=== PATIENT | male | born 1990 | race Two or more races ===

== ENCOUNTER 2016-10-07 14:12 | Emergency (ER) | payer MEDICARE, MEDICAID ==
[2016-10-07] MEDS ORDERED: HYDROmorphone 1 MG/ML Syringe IVPUSH ONE ×3 (16:36→20:14)
[2016-10-07] MEDS ORDERED: Ondansetron 4 MG/2 ML SDV IVPUSH ONE ×2 (16:36→20:15)
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
[2016-10-07] MEDS ORDERED: Sodium Chloride 0.9% 1,000 ML IV SCH ×2 (16:45→19:00)
[2016-10-07 17:07] VITALS: BP 132/75
[2016-10-07] MEDS ORDERED: Sodium Chloride 0.9% 10 ML Syringe FLUSH PRN (17:19)
[2016-10-07] MEDS ORDERED: Iopamidol 612 MG/ML 150 ML Bottle IV SCH (17:30)
[2016-10-07] MEDS ORDERED: Lactated Ringers 1,000 ML IV SCH (20:30)
== END 2016-10-07 21:00 ==
LOC: JP.ED 14:12
DX: K85.90 Acute pancreatitis without necrosis or infection, unspecified (principal); Z90.49 Acquired absence of other specified parts of digestive tract; Z87.442 Personal history of urinary calculi; Z98.890 Other specified postprocedural states
CPT/HCPCS: 36415; 74177; 80053; 81001; 82150; 83690; 85025; 86140; 96361; 96374; 96375; 96376; 99285; J1170; J2405; J7030; J7040; J7050; J7120

== ENCOUNTER 2016-10-09 16:34 | Observation (INO) | payer MEDICARE, MEDICAID ==
[2016-10-09] MEDS ORDERED: Sodium Chloride 0.9% 1,000 ML IV SCH (18:15)
[2016-10-09] MEDS ORDERED: Ondansetron 4 MG/2 ML SDV IVPUSH ONE (18:16)
[2016-10-09] MEDS ORDERED: HYDROmorphone 1 MG/ML Syringe IVPUSH ONE ×2 (18:16→19:46)
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
[2016-10-09] MEDS ORDERED: oxyCODONE 5 MG Tab PO PRN (20:09)
[2016-10-09] MEDS ORDERED: Albuterol 0.083% 2.5 MG/3 ML Neb Soln NEB PRN (20:09)
[2016-10-09] MEDS ORDERED: Docusate Sodium 100 MG Cap PO PRN (20:09)
[2016-10-09] MEDS ORDERED: Bisacodyl 5 MG Tab PO PRN (20:09)
[2016-10-09] MEDS ORDERED: Acetaminophen 325 MG Tab PO PRN (20:09)
[2016-10-09] MEDS ORDERED: LORazepam 2 MG/ML MDV IV PRN (20:09)
[2016-10-09] MEDS ORDERED: Ondansetron 4 MG Tab.DIS PO PRN (20:09)
[2016-10-09] MEDS ORDERED: Naloxone 0.4 MG/ML SDV IVPUSH PRN (20:09)
[2016-10-09] MEDS ORDERED: HYDROmorphone/Normal Saline 15 MG/30 ML PCA IV PRN (20:09)
[2016-10-09] MEDS: Sodium Chloride 0.9% 1,000 ML IV SCH ×2 (20:44→22:09)
[2016-10-09] MEDS ORDERED: Zolpidem 5 MG Tab PO SCH (21:00)
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
[2016-10-10] MEDS: Sodium Chloride 0.9% 1,000 ML IV SCH (03:46)
[2016-10-10] MEDS ORDERED: Pantoprazole 40 MG Tab.CR PO SCH (07:30)
[2016-10-10 10:38] VITALS: BP 132/95
--- NOTE | 2016-10-10 10:58 | PCM.DCSUM1 ---
Discharge Summary - Hospital Course Brief History: This patient is a 25-year-old gentleman who was admitted through the emergency department for observation status for management of residual abdominal pain following a recent ERCP for common duct stones. - Discharge Data Discharge Date: 10/10/16 Discharge Disposition: Home, Self-Care 01 Condition: Good - Discharge Diagnosis/Problem(s) (1) Pancreatitis due to common bile duct stone SNOMED Code(s): 82119384 ICD Code: K85.90 - ACUTE PANCREATITIS WITHOUT NECROSIS OR INFECTION, UNSP; K80.50 - CALCULUS OF BILE DUCT W/O CHOLANGITIS OR CHOLECYST W/O OBST Status: Acute Current Visit: Yes (2) Chronic abdominal pain SNOMED Code(s): 945167818 ICD Code: R10.9 - UNSPECIFIED ABDOMINAL PAIN; G89.29 - OTHER CHRONIC PAIN Status: Chronic Current Visit: No - Patient Summary/Data Consults: Consultations 10/09/16 20:09 Consult to Case Management [CONS] Routine Comment: Physician Instructions: Quantity: 10/10/16 09:00 Consult to Spiritual Care [CONS] Routine Spiritual Care Specialty: Electrical Control Assembler Special Instructions: Pt requests more information regarding advanced directives. Hospital Course: This patient is a 25-year-old gentleman, earlier this week presented with abdominal pain and elevated liver enzymes as well as pancreatitis. He was transferred to tertiary care Center in [place], was found to have common duct stones and underwent a ERCP. He left the hospital in [place] early yesterday and presented to our emergency room still experiencing some abdominal pain. Labs were unremarkable including normal bilirubin and alkaline phosphatase as well as lipase level. White blood cell count was normal and he was afebrile with stable vital signs. He was admitted to observation status for pain management. He received IV pain medications via GENERAL FOUNDRY WORKER pump as well as IV fluids for hydration. By the following morning he was tolerating a regular diet and labs remained stable. Abdominal pain had essentially resolved compared to what he was experiencing on admission. He will be discharged to home, followup appointment should be scheduled with primary care provider within one week. Activity will be as tolerated and he will resume his usual diet. - Patient Instructions Diet: Usual Diet as Tolerated Activity: As Tolerated Other/Special Instructions: Schedule followup appointment with primary care provider within one week. Followup with gastroenterology as previously scheduled. - Discharge Plan Home Medications: Home Meds NK [No Known Home Meds] 08/30/16 [History] Referrals: PCP,None [Primary Care Provider] - - Patient Data Vitals - Most Recent: Last Vital Signs Temp 97.6 F 10/10/16 10:37 Pulse 72 10/10/16 10:37 Resp 18 10/10/16 10:37 BP 132/95 H 10/10/16 10:37 Pulse Ox 96 10/10/16 10:37 Weight - Most Recent: 255 lb I&O - Last 24 hours: Intake & Output 10/09/16 10/10/16 10/10/16 22:59 06:59 14:59 Intake Total 480 1752 Balance 480 1752 Lab Results - Last 24 hrs: Laboratory Results - last 24 hr 10/10/16 10/10/16 10/10/16 Range/Units 04:50 04:50 04:50 WBC 7.3 (4.5-11.0) K/uL RBC 4.80 (4.30-5.90) M/uL Hgb 14.1 (12.0-15.0) g/dL Hct 41.6 (40.0-54.0) % MCV 87 (80-98) fL MCH 29 (27-31) pg MCHC 34 (32-36) % Plt Count 193 (150-400) K/uL Neut % (Auto) 41 (36-66) % Lymph % (Auto) 42 (24-44) % Mccormick % (Auto) 11 H (2-6) % Eos % (Auto) 6 H (2-4) % Baso % (Auto) 1 (0-1) % Sodium 142 (140-148) mmol/L Potassium 4.4 (3.6-5.2) mmol/L Chloride 105 (100-108) mmol/L Carbon Dioxide 28 (21-32) mmol/L Anion Gap 9.4 (5.0-14.0) mmol/L BUN 10 (7-18) mg/dL Creatinine 1.0 (0.8-1.3) mg/dL Est Cr Clr Drug Dosing 122.87 mL/min Estimated GFR (MDRD) > 60 (>60) Glucose 123 H (74-106) mg/dL Calcium 8.3 L (8.5-10.1) mg/dL Amylase 77 (25-115) U/L Lipase 332 (73-393) U/L Med Orders - Current: Current Medications Acetaminophen (Tylenol) 650 mg PO Q4H PRN PRN Reason: Pain (Mild 1-3)/fever Albuterol (Proventil Neb Soln) 2.5 mg NEB Q4H PRN PRN Reason: Shortness Of Breath/wheezing Bisacodyl (Dulcolax) 5 mg PO DAILY PRN PRN Reason: Constipation Docusate Sodium (Colace) 100 mg PO BID PRN PRN Reason: Constipation Hydromorphone HCl (Dilaudid Train Controller 15 Mg In Ns 30 Ml) 0 mg IV ASDIRECTED PRN; Protocol PRN Reason: Pain Last Admin: 10/09/16 20:11 Dose: 15 mg Sodium Chloride (Normal Saline) 1,000 mls @ 125 mls/hr IV ASDIRECTED [facility] Last Admin: 10/10/16 03:46 Dose: 125 mls/hr Lorazepam (Ativan) 1 mg IV Q6H PRN PRN Reason: Nausea/Vomiting Naloxone HCl (Narcan) 0.4 mg IVPUSH Q2M PRN PRN Reason: Respiratory Distress Ondansetron HCl (Zofran Odt) 4 mg PO Q6H PRN PRN Reason: Nausea able to take PO Last Admin: 10/09/16 21:29 Dose: 4 mg Oxycodone HCl (Oxycodone) 5 mg PO Q4H PRN PRN Reason: Pain (moderate 4-6) Pantoprazole Sodium (Protonix) 40 mg PO ACBREAKFAST [facility] Last Admin: 10/10/16 09:36 Dose: 40 mg Zolpidem Tartrate (Ambien) 5 mg PO BEDTIME [facility] Last Admin: 10/09/16 22:28 Dose: Not Given Discontinued Medications Hydromorphone HCl (Dilaudid) 1 mg IVPUSH ONETIME ONE Stop: 10/09/16 18:17 Last Admin: 10/09/16 18:44 Dose: 1 mg Hydromorphone HCl (Dilaudid) 1 mg IVPUSH ONETIME ONE Stop: 10/09/16 19:47 Last Admin: 10/09/16 19:53 Dose: 1 mg Sodium Chloride (Normal Saline) 1,000 mls @ 999 mls/hr IV ASDIRECTED [facility] Last Admin: 10/09/16 18:45 Dose: 999 mls/hr Ondansetron HCl (Zofran) 4 mg IVPUSH ONETIME ONE Stop: 10/09/16 18:17 Last Admin: 10/09/16 18:44 Dose: 4 mg *Q Meaningful Use (DIS) - VTE *Q VTE Criteria *Q: - Stroke *Q Stroke Criteria *Q: - AMI *Q AMI Criteria *Q:
== END 2016-10-10 12:00 | disposition home or self-care (01) ==
LOC: JP.ED 16:34 → JP.MS 19:50
PROVIDERS: ADMIT Hospitalist; ATTEND Hospitalist
DX: K85.90 Acute pancreatitis without necrosis or infection, unspecified (principal); G89.29 Other chronic pain; K21.9 Gastro-esophageal reflux disease without esophagitis; F32.9 Major depressive disorder, single episode, unspecified; F41.9 Anxiety disorder, unspecified; F17.200 Nicotine dependence, unspecified, uncomplicated
CPT/HCPCS: 36415; 80048; 80053; 81001; 82150; 83690; 85025; 93005; 94762; 96361; 96374; 96375; 99285; A9270; G0378; J1170; J2405; J7040; 93010; 99234

== ENCOUNTER 2018-01-14 11:05 | Emergency (ER) | payer MEDICAID, MEDICARE ==
[2018-01-14 11:24] VITALS: BP 150/87
[2018-01-14] MEDS ORDERED: Albuterol/Ipratropium 3.0-0.5 MG/3 ML Neb Soln NEB ONE (11:40)
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
== END 2018-01-14 12:42 | disposition home or self-care (01) ==
LOC: JP.ED 11:05
DX: J06.9 Acute upper respiratory infection, unspecified (principal); F41.9 Anxiety disorder, unspecified; F17.210 Nicotine dependence, cigarettes, uncomplicated
CPT/HCPCS: 87081; 87430; 94640; 99285; J7620

== ENCOUNTER 2019-03-18 18:46 | Emergency (ER) | payer MEDICARE ==
[2019-03-18 19:10] VITALS: BP 133/87
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
[2019-03-18] MEDS: Cyclobenzaprine 10 MG Tab PO ONE (20:34)
[2019-03-18] MEDS: LORazepam 0.5 MG Tab PO ONE (20:36)
[2019-03-18] MEDS: Ketorolac 60 MG/2 ML SDV IM ONE (20:39)
[2019-03-18] MEDS: Amoxicillin 500 MG Cap PO ONE (20:40)
[2019-03-18] MEDS: Lidocaine 4% Top Soln 50 ML Bottle MUCMEM ONE (20:40)
== END 2019-03-18 21:01 | disposition home or self-care (01) ==
LOC: JP.ED 18:46
DX: K04.7 Periapical abscess without sinus (principal); F17.210 Nicotine dependence, cigarettes, uncomplicated; F41.9 Anxiety disorder, unspecified; Z79.899 Other long term (current) drug therapy
CPT/HCPCS: 96372; 99282; A9270; J1885

== ENCOUNTER 2020-01-03 09:49 | Emergency (ER) | payer MEDICARE ==
[2020-01-03 10:09] VITALS: BP 149/84; PULSE 85
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
== END 2020-01-03 10:55 | disposition home or self-care (01) ==
LOC: JP.ED 09:49
DX: K04.7 Periapical abscess without sinus (principal); F17.210 Nicotine dependence, cigarettes, uncomplicated
CPT/HCPCS: 99282

== ENCOUNTER 2020-03-09 23:51 | Emergency (ER) | payer MEDICARE ==
[2020-03-10 00:09] VITALS: BP 147/103; PULSE 89
[2020-03-10] MEDS: Bupivacaine 0.5%/EPINEPHrine 1:200,000 1.8 ML Cartridge INJECT ONE ×2 (00:17→00:22)
[2020-03-10] MEDS ORDERED: Ketorolac 60 MG/2 ML SDV IM ONE (00:22)
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
[2020-03-10] MEDS ORDERED: Ketorolac 10 MG Tab PO ONE (00:37)
[2020-03-10] MEDS ORDERED: Acetaminophen/HYDROcodone 325-10 MG Tab PO ONE (00:37)
== END 2020-03-10 00:46 | disposition home or self-care (01) ==
LOC: JP.ED 23:51
DX: K08.89 Other specified disorders of teeth and supporting structures (principal); F17.210 Nicotine dependence, cigarettes, uncomplicated
CPT/HCPCS: 99282; A9270; 99283; J3490

== ENCOUNTER 2020-06-21 14:24 | Emergency (ER) | payer MEDICARE ==
[2020-06-21 14:49] VITALS: BP 107/85; PULSE 82
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
[2020-06-21] MEDS: Acetaminophen/HYDROcodone 325-5 MG Tab PO ONE (14:50)
== END 2020-06-21 15:04 | disposition home or self-care (01) ==
LOC: JP.ED 14:24
DX: K08.89 Other specified disorders of teeth and supporting structures (principal); F17.210 Nicotine dependence, cigarettes, uncomplicated
CPT/HCPCS: 99282; A9270

== ENCOUNTER 2021-05-25 19:49 | Emergency (ER) | payer MEDICARE ==
[2021-05-25] MEDS ORDERED: Sodium Chloride 0.9% 10 ML Syringe FLUSH PRN (19:55)
[2021-05-25] MEDS ORDERED: Iopamidol 612 MG/ML 100 ML Bottle IV ONE (19:58)
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
[2021-05-25] MEDS ORDERED: HYDROmorphone 1 MG/ML Syringe IVPUSH ONE (20:03)
[2021-05-25 20:29] VITALS: BP 148/88; PULSE 100
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
== END 2021-05-25 21:19 ==
LOC: JP.ED 19:49
DX: S16.1XXA Strain of muscle, fascia and tendon at neck level, initial encounter (principal); T71.194A Asphyxiation due to mechanical threat to breathing due to other causes, undetermined, initial encounter; K21.9 Gastro-esophageal reflux disease without esophagitis; Z79.899 Other long term (current) drug therapy; X50.9XXA Other and unspecified overexertion or strenuous movements or postures, initial encounter
CPT/HCPCS: 70491; 96374; 99285; J1170; Q9967

== ENCOUNTER 2022-09-16 13:17 | Emergency (ER) | payer MEDICARE ==
[2022-09-16] MEDS ORDERED: Ketorolac 15 MG/ML SDV IVPUSH ONE (14:01)
[2022-09-16] MEDS ORDERED: Sodium Chloride 0.9% 10 ML Syringe FLUSH PRN (14:01)
[2022-09-16] MEDS ORDERED: Sodium Chloride 0.9% 500 ML IV ONE (14:02)
[2022-09-16] MEDS ORDERED: Prochlorperazine 10 MG/2 ML SDV IVPUSH ONE (14:02)
[2022-09-16] MEDS ORDERED: Ondansetron 4 MG/2 ML SDV IVPUSH ONE (14:03)
[2022-09-16 15:27] VITALS: BP 137/69; PULSE 75
[2022-09-16 15:40] LABS: CORONAVIRUS COVID-19 NAA NEGATIVE (NEGATIVE)
== END 2022-09-16 15:41 | disposition home or self-care (01) ==
LOC: JP.ED 13:17
DX: G47.30 Sleep apnea, unspecified (principal); F17.210 Nicotine dependence, cigarettes, uncomplicated; Z77.098 Contact with and (suspected) exposure to other hazardous, chiefly nonmedicinal, chemicals; Z79.899 Other long term (current) drug therapy; Z20.822 Contact with and (suspected) exposure to COVID-19
CPT/HCPCS: 0241U; 36415; 81001; 82803; 85025; 86140; 96374; 96375; 99284-25; J0780; J1885; J2405; J3490; J7040